=== PATIENT | female | born 1990 | race Two or more races ===

== ENCOUNTER 2018-02-09 00:05 | Outpatient (CLI) | payer OTHER | END 2018-02-09 14:09 | disposition home or self-care (01) | LOC: OBS/DEL 00:05 | DX: O47.03 False labor before 37 completed weeks of gestation, third trimester (principal); Z34.83 Encounter for supervision of other normal pregnancy, third trimester; O23.593 Infection of other part of genital tract in pregnancy, third trimester; R07.89 Other chest pain ==

== ENCOUNTER 2018-03-23 14:04 | Inpatient (IN) | payer OTHER ==
[~2018-03-23] VITALS: Ht 157.5 cm; Wt 83.9 kg
== END 2018-03-25 13:54 | DRG 807 ==
LOC: LDR 14:04 → OB/GYN 03-24 10:13
PROVIDERS: ADMIT Specialist
PROC: 10E0XZZ Delivery of Products of Conception, External Approach (ICD-10-PCS; principal; 2018-03-23)
PROC: 4A1HXCZ Monitoring of Products of Conception, Cardiac Rate, External Approach (ICD-10-PCS; 2018-03-23)
DX: O80 Encounter for full-term uncomplicated delivery (principal); Z37.0 Single live birth; Z3A.38 38 weeks gestation of pregnancy; Z22.330 Carrier of Group B streptococcus

== ENCOUNTER 2018-04-07 19:42 | Inpatient (IN) | payer OTHER ==
[~2018-04-07] VITALS: Ht 160 cm; Wt 77.1 kg
== END 2018-04-12 10:11 | disposition home or self-care (01) | DRG 769 ==
LOC: ER 19:42 → CIR.AMB 22:21 → OB/GYN 23:00 → CIR.AMB 04-08 01:11 → OB/GYN 04-08 23:00 → CIR.AMB 04-08 23:00 → OB/GYN 04-12 10:11
PROVIDERS: ADMIT Specialist
PROC: BU4CZZZ Ultrasonography of Uterus and Ovaries (ICD-10-PCS; 2018-04-07)
PROC: 10D17ZZ Extraction of Products of Conception, Retained, Via Natural or Artificial Opening (ICD-10-PCS; principal; 2018-04-08)
DX: O72.2 Delayed and secondary postpartum hemorrhage (principal); O86.4 Pyrexia of unknown origin following delivery; O86.29 Other urinary tract infection following delivery; O90.81 Anemia of the puerperium; D64.89 Other specified anemias

== ENCOUNTER → 2018-07-26 | Outpatient (CLI) | payer OTHER | END | disposition home or self-care (01) | LOC: SONOGRAMA 12:02 | DX: O03.4 Incomplete spontaneous abortion without complication (principal) ==